=== PATIENT | male | born 1995 | race Hispanic/Latino ===

== ENCOUNTER 2022-07-18 15:12 | Outpatient (CLI) | payer SELFPAY | END 2022-07-18 15:13 | disposition home or self-care (01) | LOC: CSHLAB 15:12 | PROVIDERS: ATTEND Urology | DX: Z20.822 Contact with and (suspected) exposure to COVID-19 (principal) | CPT/HCPCS: 87811 ==

== ENCOUNTER 2022-07-20 11:19 | Day surgery (SDC) | payer SELFPAY ==
[2022-07-19 08:37] VITALS: BMI 26.1
[~2022-07-20 11:19] MED LIST: Bupivacaine PF 0.5% 30 ML VIAL ONE
[2022-07-20] MEDS ORDERED: CEFAZOLIN 2 GM VIAL ONE (12:11)
[2022-07-20] MEDS ORDERED: Ketamine 50 MG/ML (10ML VIAL) ONE (12:23)
[2022-07-20] MEDS ORDERED: Famotidine/PF 20 mg/2ml Vial ONE (12:23)
[2022-07-20] MEDS ORDERED: Ketorolac Tromethamine 30 MG/ML VIAL ONE (12:24)
[2022-07-20] MEDS ORDERED: Lidocaine 2% PF 5 ML VIAL ONE (12:24)
[2022-07-20] MEDS ORDERED: PROPOFOL 20 ML ONE (12:24)
[2022-07-20] MEDS ORDERED: Midazolam HCl 2 mg/2 ml Vial ONE (12:24)
[2022-07-20] MEDS ORDERED: Fentanyl 100 MCG/2 ML VIAL ONE ×2 (12:24→14:29)
[2022-07-20] MEDS ORDERED: Ondansetron PF 4 MG/2 ML Vial ONE (12:25)
[2022-07-20] MEDS ORDERED: Dexamethasone 20 MG/5 ML VIAL ONE (12:25)
[2022-07-20] MEDS ORDERED: Succinylcholine 200 MG/10 ml SYRINGE FS ONE (12:25)
[2022-07-20] MEDS ORDERED: EPINEPHrine 1 MG/ML AMP ONE (12:49)
[2022-07-20] MEDS ORDERED: ePHEDrine Sulfate 50 MG/10 ML VIAL ONE (12:59)
[2022-07-20] MEDS ORDERED: Meperidine HCl/PF 25 MG/ML VIAL ONE (13:59)
== END 2022-07-20 15:45 | disposition home or self-care (01) ==
LOC: CSHSDC 11:19
PROVIDERS: ATTEND Urology
PROC: 0VT90ZZ Resection of Right Testis, Open Approach (ICD-10-PCS; principal; 2022-07-20)
PROC: 0VBF0ZZ Excision of Right Spermatic Cord, Open Approach (ICD-10-PCS; principal; 2022-07-20)
PROC: 0VTJ0ZZ Resection of Right Epididymis, Open Approach (ICD-10-PCS; principal; 2022-07-20)
DX: C62.91 Malignant neoplasm of right testis, unspecified whether descended or undescended (principal); Z20.822 Contact with and (suspected) exposure to COVID-19; Z90.49 Acquired absence of other specified parts of digestive tract; Z98.890 Other specified postprocedural states
CPT/HCPCS: 84702; 88309; 88341; 88342; J0171; J0690; J1100; J1885; J2001; J2175; J2250; J2405; J2704; J3010; S0020; S0028